=== PATIENT | male | born 1950 | race Caucasian/White ===

== ENCOUNTER 2017-12-13 10:39 | Inpatient (IN) ==
--- NOTE | 2017-12-13 14:58 | IRU History & Physical Report ---
HPI U Date: Date: 12/13/17 Time: 1446 Chief complaint: My legs are weak HPI: Mr. Torres is a pleasant 67-year-old male living at home with his . The patient was interviewed in his room on acute inpatient rehabilitation with his present. Referring physician and primary care physician is Dr. Edd Mendiola. Last spring and summer he was quite independent and enjoyed working outdoors in his yard. He began having progressive weakness in his lower extremities beginning in March or April 2017. By May he could not get up out of his chair and he was transported I believe to via [facility]. He was hospitalized for a couple weeks but had to go home due to family concerns. He states that he was very swollen at that time and it sounds like he was treated predominantly for congestive heart failure. Based on my interview with the patient and his , it is not clear whether his leg weakness was addressed apart from getting rid of the swelling. Ever since that time he has had a gradual decline in his functioning. He has most recently been seen with home health for physical therapy a couple of times weekly. He did not feel as though he made much progress but indicates it was likely due to the fact that he was not being challenged enough at that time. He currently requires a walker or single-point cane to ambulate even short distances in his home. He complains of recurrent edema and he is on hydrochlorothiazide plus Lasix plus metolazone in this regard. He does not know what his ejection fraction is. His pump house engineer is Dr Hill in [place]. He was told that he had diabetes for the first time in May 2017. His initial A1c was around 10%. He states he does not check his blood sugars at home. He was on insulin for a short time in the hospital and then at home but for the past several months has been on glipizide XL 5 mg daily. He does not know what his recent A1c is. In addition he has suffered about 5 or 6 falls in the past month. He tends to fall backwards at those times. At one point he broke a chair and scratched his bottom on a nail. (This area was inspected today upon admission and he just has a couple small scabs which are noninflamed in the right buttock area.) Besides his diabetes mellitus he has numerous other medical conditions. He reports he has had 2 open heart procedures with coronary artery bypass graft procedure is being done. He reports a history of 6 stents having been placed in his heart. His angina is characterized by jaw pain. He still has occasional episodes but not recently he states. According to a record from his primary care physician he reportedly also has history of systolic and diastolic heart failure. We will request records from Dr. Hill regarding his ejection fraction and echocardiogram report. He has chronic back pain and as a result is unable to get out of bed on his own. He has great difficulty with transfers and ambulation. He lives with his in their own home I believe with some grandchildren as well. He has one or 2 steps to get into his home. He does use either a rolling walker or a cane depending on the situation. He has developed quite a bit of urinary incontinence partially due to the fact he cannot get up and go to the bathroom as rapidly as he would like. However he also reports that he is "not able to hold it." He has been told that he possibly has a prostate problem but to my knowledge has not seen urology. He does require assistance with lower extremity dressing and getting in and out of bed. Prior level of functioning was quite independent for all activities. He was able to walk without assistive device. He was active and working in his yard last spring and summer apparently. Current level of functioning is as follows: He requires a single-point cane or a walker to ambulate. He is independent with eating but requires supervision for grooming. He requires minimum assistance for bathing, supervision for upper body dressing and minimal assistance for lower body dressing. He is modified independent for toileting but requires minimus assistance for bed/chair/ wheelchair transfers. Requires supervision for toilet transfers. Unfortunately he requires total assistance for walking with a rolling walker or single-point cane only 20 feet. Requires quite a bit of assistance to get up out of a chair. It takes the patient a prolonged time to get up from the chair and he makes at least 2 attempts to rise prior to actually standing up. He has had multiple falls. The following medical conditions are noted and require active monitoring and/or management: 1. Generalized debilitation with gradual downhill course over the last several months with multiple falls. This is in the setting of multiple back procedures ( cervical spine procedure as well as 2 prior lumbar spine procedures) with significant back pain and difficulty transferring and ambulating. 2. Combined systolic and diastolic heart failure. He takes numerous diuretics and has a problem with recurrent edema he states. 3. Diabetes mellitus, not controlled, on oral agents. He is at risk for further poor control of his diabetes in view of the variable energy requirements associated with therapy. 4. Depression. He is at risk for continued problems with severe depression based on ongoing pain in his back. 5. Coronary artery disease status post bypass, without current angina pectoris The following therapies will be needed: 1. Physical therapy: for transfers and ambulation and stairs. 2. Occupational therapy: for ADL's and transfers. 3. Medical management: for the above conditions. 4. 24 hour Rehabilitation Nursing to monitor and address the following: Close monitoring of blood sugars, blood pressure, cardiac status in view of his heart failure and pain management. 5. Dietitian: In view of his diabetes mellitus. PFSH 1. Coronary artery disease status post bypass procedures and 6 cardiac stents 2. Congestive heart failure, combined systolic and diastolic 3. Urinary urgency and incontinence 4. Gout 5. Diabetes mellitus, not controlled, without complications and not on long- term insulin therapy 6. Obesity 7. Severe debilitation Surgical History: 1. Cervical spine procedure a number of years ago ("cleaned out the spurs"). 2. Bilateral carpal tunnel repair. 3. Coronary artery bypass graft procedure on 2 separate occasions. 4. Multiple cardiac stents. 5. Lumbar spine procedure 2, the first in approximately 2002 and the second in 2011. 5. Sinus surgery Family History: Patient's father of heart disease including congestive heart failure. Mother of diabetes mellitus and heart disease. One brother of heart disease and another sister likely of heart disease according to the patient. - Social History Smoking status: Former smoker (smoked for a brief time from age 21 through his early 20s.) Alcohol intake: former (he states he has drank fairly heavily in the past including a sixpack every evening. This is been a number of years ago.) Alcohol intake frequency: holidays/special occasions only (currently has occasional glass of wine or alcohol.) Last drink: days (ago) (28) Housing: house Household members: spouse, children Current occupational status: retired Current residence: Apartment/Private Home Social history: Patient lives with his in their own home. 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 He formerly has been very active outdoors but has not been able to participate much due to his leg weakness and disability. Review of Systems - Constitutional Constitutional: Present: fatigue, lethargy, weakness, weight gain (has gained gradually over the years but has gained at least 30 pounds during this past 12 months.). Absent: anorexia, chills, fever(s), headache(s), malaise, night sweats, weight loss - EENMT Eyes: Absent: blurry vision, change in vision, diplopia Mouth/Throat: Absent: changes in swallowing, painful swallowing, change in taste , bleeding gums, change in voice - Cardiovascular Cardiovascular: Present: dyspnea on exertion, edema. Absent: chest pain, palpitations, syncope, orthopnea, cyanosis, heart murmur Rhythm: Present: regular rhythm Vascular: Absent: intermittent claudication, pedal edema, unilateral swelling - Respiratory Respiratory: Present: dyspnea, dyspnea on exertion. Absent: cough, hemoptysis, wheezing, pain on inspiration, chest congestion, excessive phlegm production - Gastrointestinal Gastrointestinal: Present: constipation. Absent: abdominal pain, change in bowel habits, diarrhea, dyspepsia, dysphagia, early satiety, hematochezia, melena, nausea, vomiting - Genitourinary Genitourinary: Present: urinary frequency, urinary incontinence, urinary urgency - Musculoskeletal Musculoskeletal: Present: abnormal gait (wide based gait), back pain. Absent: arthralgias, joint swelling, limited range of motion, muscle weakness - Integumentary/Breasts Integumentary: Absent: alopecia, erythema, lesions, pruritus, rash, jaundice - Neurological Neurological: Absent: abnormal gait, abnormal movements, abnormal speech, confusion, convulsions, dizziness, focal weakness, frequent falls, headache(s), loss of vision, memory loss, numbness, paresthesias, tremor(s) - Psychiatric Psychiatric: Absent: abnormal sleep pattern, anxiety, depression - Endocrine Endocrine: Absent: cold intolerance, flushing, heat intolerance, palpitations - Hematologic/Lymphatic Hematologic/Lymphatic: Absent: easy bleeding, easy bruising, lymphadenopathy - Allergic/Immunologic Allergic/Immunologic: Absent: urticaria Medications Home Medications Medication Instructions Recorded Confirmed Type Allopurinol [Zyloprim] 100 mg PO DAILY 12/13/17 12/13/17 History Furosemide [Lasix] 1 tab PO DAILY 12/13/17 12/13/17 History Metolazone [Zaroxolyn] 5 mg PO DAILY 12/13/17 12/13/17 History PARoxetine HCl [Paroxetine HCl] 40 mg PO DAILY 12/13/17 12/13/17 History Tramadol HCl [Ultram] 50 mg PO Q6HR PRN 12/13/17 12/13/17 History glipiZIDE [Glipizide ER] 5 mg PO DAILY 12/13/17 12/13/17 History hydroCHLOROthiazide 25 mg PO DAILY 12/13/17 12/13/17 History [Hydrochlorothiazide] Exam Vital Signs: Temperature 98.1 F 12/13/17 14:01 Pulse Rate 89 12/13/17 14:01 Respiratory Rate 22 12/13/17 14:01 Blood Pressure 124/85 12/13/17 14:01 Pulse Oximetry 98 12/13/17 14:01 - Constitutional Present: moderate distress (quite weak and finds it difficult to stand from sitting position without assistance.), well nourished, well developed, morbidly obese, cooperative - Routine HEENT Exam Head: Present: normocephalic, atraumatic. Absent: cushingoid faces, abrasion, laceration, hematoma Eye: Present: EOMI, PERRL. Absent: conjunctival icterus, scleral injection, periorbital swelling, nystagmus ENT: Present: mucous membranes moist, oropharynx clear, dentition normal - Routine Neck Exam Present: supple, full ROM, trachea midline. Absent: lymphadenopathy, thyromegaly, tenderness, swelling - Routine Chest/Breast/Axilla Exam Chest wall: Absent: tenderness, mass Axillae: Absent: lymphadenopathy, mass - Routine Respiratory Exam Present: CTA bilaterally. Absent: accessory muscle use, decreased breath sounds , prolonged expiratory phase, rales, respiratory distress, rhonchi, stridor, wheezes, crackles, distant breath sounds - Routine Cardiovascular Exam Present: RRR, S1, S2, no murmur. Absent: gallop, S3, S4, click, irregular rhythm - Routine Abdominal Exam Present: soft, normoactive bowel sounds, non distended, non tender. Absent: rebound, guarding, firm, rigid, organomegaly, mass, hernia, wound - Routine Extremities Exam Present: edema (trace to 1+ edema left lower extremity), non tender, pulses intact, normal capillary refill. Absent: cyanosis, clubbing - Routine Back/Spine/Pelvis Exam Back/Spine: Present: full ROM. Absent: scoliosis, kyphosis - Routine Skin Exam Present: intact, dry, warm, wounds (2 small scabbed wounds right buttock noninflamed). Absent: cyanosis, erythema, pallor, mottling, petechiae, urticaria, lesions, jaundice - Routine Neurological Exam Present: alert, oriented X3, CN II-XII intact, motor deficit (unable to dorsiflex right foot. Strength otherwise somewhat reduced with abduction and abduction at the hips bilaterally.), moving all extremities, normal speech - Routine Psychiatric Exam Present: normal affect, normal thought process, cooperative, good insight, good judgment. Absent: depressed, anxious Sepsis Assessment - Evaluation Severe Sepsis: none seen IRU A/P (1) Debility Current visit: Yes Status: Chronic Patient has experienced progressive debility since last summer, prior to which time he was quite active. He has lower extremity weakness and multiple functional deficits. Question spinal stenosis versus simply generalized debility second to obesity and deconditioning. (2) DM type 2 (diabetes mellitus, type 2) Qualifiers: Diabetes mellitus grader tender insulin use: without grader tender use Diabetes mellitus complication status: without complication Qualified Code(s): E11.9 - Type 2 diabetes mellitus without complications Current visit: Yes Status: Chronic He was diagnosed with diabetes mellitus in May 2017. He reports his A1c as 10 % previously. He does not check his blood sugars at home. He is on oral agents only. (3) Systolic and diastolic CHF, chronic Current visit: Yes Status: Chronic He has recurrent edema. He has significant shortness of breath with activity. This diagnosis is listed on his primary care office record. (4) Morbid obesity Current visit: Yes Status: Chronic (5) Lumbar spine pain Current visit: Yes Status: Chronic (6) Arteriosclerotic heart disease (ASHD) Current visit: Yes Status: Chronic He reportedly has had 2 separate coronary artery bypass graft procedures as well as 6 stents being placed. Has occasional jaw pain. He is at risk for worsening angina due to his need for additional therapy to improve his functional status. DVT Prophylaxis: SCD's, Lovenox Resuscitation Status: Full Code - Course Hospital Course: Rodriguez Rivero MD: - Interventions to Obtain Goals PT Treatment Plan: Balance/Proprioception, Functional Activities, Gait Training , Patient/Family Education, Therapeutic Exercise OT Treatment Plan: ADL (Basic Care), Balance Training, IADL, Pt./Family Education, Ther. Exercise for ADL Goals Progress/Modifications: This patient has developed multiple functional deficits over the last several months. He has suffered frequent falling episodes. He tends to fall backwards. In addition he has multiple medical problems including coronary artery disease, congestive heart failure with recurrent edema, diabetes mellitus type 2 and possibly sleep apnea based on his symptoms. He requires a multidisciplinary approach with PT, OT, 24 hour rehabilitation nursing and medical supervision.
--- NOTE | 2017-12-13 15:12 | IRU 24Hr Post Admit Eval ---
24 Hr Post Admission Physical - Relevant Changes Relevant Changes: No Reviewed: I have reviewed the patient's information and concur with the finding and results of the pre-admission screen. Certification: I certify the patient for rehabilitation. - Patient Condition (1) Debility Status: Chronic Code(s): R53.81 - Other malaise Classification: Present on IRF Admission, IRF Tx That Should Address Diagnosis, Diagnosis Requiring Medical Follow Up (2) DM type 2 (diabetes mellitus, type 2) Status: Chronic Qualifiers: Diabetes mellitus residential insulin use: without manager long term care use Diabetes mellitus complication status: without complication Qualified Code(s): E11.9 - Type 2 diabetes mellitus without complications Code(s): E11.9 - Type 2 diabetes mellitus without complications Classification: Present on IRF Admission, IRF Tx That Should Address Diagnosis, Diagnosis Requiring Medical Follow Up (3) Systolic and diastolic CHF, chronic Status: Chronic Code(s): I50.42 - Chronic combined systolic (congestive) and diastolic (congestive) heart failure Classification: Present on IRF Admission, IRF Tx That Should Address Diagnosis, Diagnosis Requiring Medical Follow Up (4) Morbid obesity Status: Chronic Code(s): E66.01 - Morbid (severe) obesity due to excess calories Classification: Present on IRF Admission, Diagnosis Requiring Medical Follow Up (5) Lumbar spine pain Status: Chronic Code(s): M54.5 - Low back pain Classification: Present on IRF Admission, IRF Tx That Should Address Diagnosis, Diagnosis Requiring Medical Follow Up (6) Arteriosclerotic heart disease (ASHD) Status: Chronic Code(s): I25.10 - Atherosclerotic heart disease of saxman coronary artery without angina pectoris Classification: Present on IRF Admission, Diagnosis Requiring Medical Follow Up - Prior Functional Status Lives With: Spouse, With Family Residence Type: Apartment/Private Home Assitive Devices: Four Wheeled Walker, Straight Cane Prior Functional Status: Indep. at home or school - Current Functional Status Current Level of Function: Current level of functioning is as follows: He requires a single-point cane or a walker to ambulate. He is independent with eating but requires supervision for grooming. He requires minimum assistance for bathing, supervision for upper body dressing and minimal assistance for lower body dressing. He is modified independent for toileting but requires minimus assistance for bed/chair/ wheelchair transfers. Requires supervision for toilet transfers. Unfortunately he requires total assistance for walking with a rolling walker or single-point cane only 20 feet. Requires quite a bit of assistance to get up out of a chair. It takes the patient a prolonged time to get up from the chair and he makes at least 2 attempts to rise prior to actually standing up. He has had multiple falls. Failed Alternative Therapy: Yes (outpatient (home health) therapy was attempted but not successful.) Patient Requirements: The patient requires oversight by rehabilitation physician to manage their rehabilitation treatment plan and multidisciplinary approach to care that can only be provided in an IRF and requires a multidisciplinary approach to care, provided by professional PTs, OTs, STs, dieticians, RTs, rehabilitation nurses and is not available in lesser levels of care. Limitations Req: Mobility Impairment, ADL Impairment, Respiratory Impairment Physical Therapy Minutes: 90 Occupational Therapy Minutes: 90 Therapy: The patient is to receive therapy at least 5 days a week. - Complications/Comorbidities Impact on Functional Outcomes: His deconditioning, obesity and congestive heart failure may negatively impact his functional outcome. Barriers to Discharge: Weakness, Balance, Endurance, Medical Limitation - Plan to Avoid Complications Plan to Avoid Complications: The patient cannot receive this care in a lesser intensive setting such as Alf or Outpatient Therapy due to the patient requiring the following : This patient requires a multidisciplinary approach with PT and OT as well as dietitian management of his diabetes. He requires 24 hour rehabilitation nursing to monitor his cardiac status, blood sugars and to reduce his fall risk. He requires medical supervision.
--- NOTE | 2017-12-13 15:26 | Progress Note ---
Progress Note: Patient and reports that he cannot sleep flat in bed at night and that he gasps for air at night. We will check an overnight oximetry in this regard.
[2017-12-13] MEDS ORDERED: NITROGLYCERIN 0.4 MG SUBLINGUAL TABLET SL PRN (16:29)
[2017-12-13] MEDS ORDERED: ENOXAPARIN - PHARMACY CONSULT MC ONE (16:30)
--- NOTE | 2017-12-13 16:44 | Progress Note ---
Progress Note: Records from Dr. Hill's office have been obtained and reviewed. Echocardiogram April 2017 indicated normal ejection fraction is 60%. He has been diagnosed with diastolic heart failure. In addition, he is supposed to be on aspirin 81 mg daily plus Lipitor 10 mg daily. Patient was not aware of that. Reference is made to treadmill sometime in the latter portion of 2016 which was negative for ischemia and revealed normal left ventricular ejection fraction.
--- NOTE | 2017-12-13 16:48 | Pharmacy Consult ---
Pharmacy Consult-Lovenox - Consult Information ENOXAPARIN CONSULT: Dx: DVT Prophylaxis Start Enoxaparin 40 mg SQ daily today. Thanks for Enoxaparin Consult, Giuseppe Cox< Pharmacist
--- NOTE | 2017-12-13 16:54 | Consult Note ---
Consult Information - Data of Consult Consult date: 12/13/17 Requesting Physician: Rodriguez Rivero MD Primary Care Provider: Edd Mendiola MD Family Provider: Edd Mendiola MD - Consult Narrative Reason for consult: Generalized debility, weakness History of present illness: Nolan Torres is a pleasant 67-year-old male who currently lives at home with his and has recently established care with Dr. Edd Mendiola. He reports that over the past year, he has become progressively more weak and debilitated which is affecting his acts of daily living. During the spring/summer of 2016, he reports that he was quite independent and enjoyed working outdoors in his yard. Around March/April 2017, he began having progressive weakness in his lower extremities. By May, he reports he could not get up out of his chair independently. He was hospitalized in [place], presumably at [facility], for a couple weeks due to his significant edema and weakness but discharged home early due to family concerns. Based on his report, it sounds like he was treated predominantly for congestive heart failure, but it is unclear if his progressive weakness was also addressed. Since that time, he has had a gradual decline in his functional ability. He has most recently been seen with home health for physical therapy a couple of times weekly, but did not feel as though he made much progress. He admits that he did not feel challenged enough with the home physical therapy. He currently requires a walker or single-point cane to ambulate even short distances in his home and admits to 5-6 falls in the past month without significant injury. He complains of recurrent edema despite being on hydrochlorothiazide plus Lasix plus metolazone. He follows with Dr. Hill in [place], who has been contacted and prior medical records have been requested. Due to his generalized weakness and debility, he was directly admitted to IRU for strengthening and improvement in functional abilities. In addition to his generalized debility, he has a significant history of diastolic heart failure, uncontrolled diabetes which was recently diagnosed in 2017, CAD with prior CABG x 2 and stent placement x 6, hypertension, hyperlipidemia, depression, urinary incontinence and chronic back pain. The hospitalist service was consulted for medical management. His prior records available at the time of admission were extensively reviewed. Labs from revealed an elevated A1c at 9.8% and otherwise unremarkable. He is currently on Glipizide Xl 5mg daily and admits that he does not check his blood sugars regularly. With regard to his urinary incontinence, he believes it is partially due to the fact that he cannot get up and go to the bathroom as rapidly as he needs but also complains of urgency and "not being able to hold it ". He has been told previously that he might possibly have prostate issues but is not currently undergoing treatment. Past Medical History Patient Stated Medical History Congestive heart failure, diastolic (Echo 04/2017 = EF 60%). Peripheral edema. Hypertension. Hyperlipidemia. CAD. Diabetes Mellitus, Type II - uncontrolled (A1c 9.8% on 11/17/17). Gait instability. Generalized weakness. Urinary incontinence. Constipation. Depression. Chronic right foot drop secondary to prior lumbar surgery. Morbid obesity, BMI >40. Gout. Surgical History: 1. Cervical spine procedure a number of years ago ("cleaned out the spurs"). 2. Bilateral carpal tunnel repair. 3. Coronary artery bypass graft procedure on 2 separate occasions - 2009. 4. Multiple cardiac stents. 5. Lumbar spine procedure 2, the first in approximately 2002 and the second in 2011. 5. Sinus surgery. Family History Updates: Patient's father of heart disease including congestive heart failure. Mother of diabetes mellitus and heart disease. One brother of heart disease and another sister likely of heart disease according to the patient. - Social History Smoking status: Former smoker (smoked for a brief time from age 21 through his early 20s.) Substance use type: does not use Alcohol intake frequency: former alcohol drinker (he states he has drank fairly heavily in the past including a sixpack every evening. This is been a number of years ago.) Housing: house Household members: spouse, family Current occupational status: retired Does patient use chewing tobacco?: No Current residence: Apartment/Private Home Social history: PCP - Dr. Edd Mendiola. Cardio - Dr. Hill. Review of Systems All systems PM: 10-point ROS was reviewed, no additional remarkable complaints except - Constitutional Constitutional: Present: weakness. Absent: chills, fatigue, fever(s) - EENMT Eyes: Absent: change in vision, diplopia, photophobia Ears: Absent: ear pain Balance: Absent: vertigo, falling to one side Nose: Absent: nosebleeds Mouth/Throat: Absent: sore throat, changes in swallowing, dry mouth - Cardiovascular Cardiovascular: Present: dyspnea on exertion, orthopnea, edema. Absent: chest pain, palpitations, syncope Rhythm: Present: regular rhythm Vascular: Present: pedal edema. Absent: pallor of an extermity, unilateral swelling - Respiratory Respiratory: Present: dyspnea on exertion. Absent: cough, dyspnea, wheezing - Gastrointestinal Gastrointestinal: Present: constipation. Absent: abdominal pain, diarrhea, hematochezia, melena, nausea, vomiting - Genitourinary Genitourinary: Present: urinary incontinence, urinary urgency. Absent: dysuria , flank pain, hematuria - Musculoskeletal Musculoskeletal: Present: back pain, muscle weakness. Absent: deformity - Integumentary/Breasts Integumentary: Absent: rash - Neurological Neurological: Present: weakness. Absent: confusion, convulsions, dizziness - Psychiatric Psychiatric: Present: anxiety, depression - Endocrine Endocrine: Absent: flushing, palpitations - Hematologic/Lymphatic Hematologic/Lymphatic: Absent: easy bruising - Allergic/Immunologic Allergic/Immunologic: Absent: seasonal rhinorrhea Medications Home Medications Medication Instructions Recorded Confirmed Type Allopurinol [Zyloprim] 100 mg PO DAILY 12/13/17 12/13/17 History Furosemide [Lasix] 1 tab PO DAILY 12/13/17 12/13/17 History Metolazone [Zaroxolyn] 5 mg PO DAILY 12/13/17 12/13/17 History PARoxetine HCl [Paroxetine HCl] 40 mg PO DAILY 12/13/17 12/13/17 History Tramadol HCl [Ultram] 50 mg PO Q6HR PRN 12/13/17 12/13/17 History glipiZIDE [Glipizide ER] 5 mg PO DAILY 12/13/17 12/13/17 History hydroCHLOROthiazide 25 mg PO DAILY 12/13/17 12/13/17 History [Hydrochlorothiazide] Allergies Allergy/AdvReac Type Severity Reaction Status Date / Time adhesive tape Allergy Verified 12/13/17 15:57 Penicillins Allergy Verified 12/13/17 15:57 Exam Vital Signs: Temperature 98.1 F 12/13/17 14:01 Pulse Rate 89 12/13/17 14:01 Respiratory Rate 22 12/13/17 14:01 Blood Pressure 124/85 12/13/17 14:01 Pulse Oximetry 98 12/13/17 14:01 Comments: Patient is seen with his present following his arrival on IRU. - Constitutional Present: no acute distress, well nourished, well developed, morbidly obese, cooperative - Routine HEENT Exam Head: Present: normocephalic, atraumatic Eye: Present: PERRL. Absent: conjunctival icterus ENT: Present: mucous membranes moist, oropharynx clear - Routine Neck Exam Present: supple, full ROM, trachea midline - Routine Chest/Breast/Axilla Exam Chest wall: Absent: pacemaker - Routine Respiratory Exam Present: CTA bilaterally. Absent: respiratory distress, rhonchi, stridor, wheezes - Routine Cardiovascular Exam Present: RRR, S1, S2 - Routine Abdominal Exam Present: soft, normoactive bowel sounds, non distended, non tender Comments: obese. - Routine Extremities Exam Present: edema (2+), pulses intact - Routine Back/Spine/Pelvis Exam Back/Spine: Present: full ROM - Routine Skin Exam Present: dry, warm. Absent: jaundice Comments: afebrile. - Routine Neurological Exam Present: alert, oriented X3, moving all extremities, hearing grossly intact, normal speech - Routine Psychiatric Exam Present: cooperative Results - Labs CBC & Chem 7: 12/13/17 16:08 Labs: Labs 11/17/17 (obtained as outpatient by PCP). WBC 10.7 H Hgb 14.1 Plt 279 Na 139 K 3.9 BUN 15 SCr 1.1 GFR 67 Glu 119 AST 46 H ALT 53 H Alk Ph 124 H A1c 9.8% H BNP 62 - Echocardiogram History of Echocardiogram: 04/2017 - normal systolic function with EF 60%; diastolic dysfunction. Assessment and Plan (1) Debility Current visit: Yes Status: Chronic (2) DM type 2 (diabetes mellitus, type 2) Problem details: A1c 9.8% - 11/17/17. Current visit: Yes Status: Chronic (3) Morbid obesity Problem details: BMI >40%. Current visit: Yes Status: Chronic (4) Arteriosclerotic heart disease (ASHD) Current visit: Yes Status: Chronic Assessment and Plan: Assessment: Gait instability. Generalized weakness. Congestive heart failure, diastolic (Echo 04/2017 = EF 60%). Chronic kidney disease, stage III. Peripheral edema. Hypertension. Hyperlipidemia. CAD. Diabetes Mellitus, Type II - uncontrolled (A1c 9.8% on 11/17/17). Urinary incontinence. Constipation. Depression. Chronic right foot drop secondary to prior lumbar surgery. Morbid obesity, BMI >40. Gout. Plan - 12/13/17: Agree with admission to IRU for continued strengthening and improvement in functional abilities. Encourage participation in therapies and provide safe and supportive environment. Will obtain labs for admission including CBC, CMP, UA, TSH, B12 and Prealbumin to assess for possible causes of debility. Given heart failure and dyspnea with exertion, will obtain CXR now. Monitor BGMs closely. Sliding scale insulin available. Continue home Glipidize Xl 5mg daily. May consider transitioning to metformin based on renal function and BGMs. Will try and obtain additional records from Dr. Hill with regard to recommended home medications. Given patient's diabetes, will discontinue HCTZ and continue home Lasix 40mg daily as well as Metolazone 5mg on MWF. Monitor daily weight. Blood pressure elevated on admission. Will initiate lisinopril 5mg daily for additional control. Incontinence most likely multifactorial given morbid obesity and suspected BPH. Will initiate Flomax daily and monitor closely for improvement. Continue home Paxil for depression/anxiety. Bowel motivation for constipation. Protonix for GI protection. SCDs and Lovenox for DVT prophylaxis. Upon discharge, patient's care will be returned to his PCP. DVT Prophylaxis: SCD's, Lovenox GI Prophylaxis: Protonix Resuscitation Status: Full Code - Time spent with patient Time with patient PN: 70 minutes - Physician Narrative Physician: Winnie Barlow MD Narrative: Date: 12/13/17 Time: 1800 I have independently evaluated and examined this patient. I reviewed the chart, the patient's history, and the EDITORIAL SPECIALIST/PA's documented findings as above. We discussed and formulated the assessment and plan as above with additions as below: Mr. Torres was seen with family members at bedside. He is admitted with generalized debility which has been progressive for years. He's previously undergone several lumbar and 1 cervical spine surgery and has chronic right foot drop. He has known coronary artery disease and diastolic heart failure. He denies sensory loss in his legs or chest pain but has significant edema and discoloration in the legs when they are dependent. Medical care has been disrupted by loss of his past managing physician and he recently established care with Dr. Mendiola who referred him to rehabilitation due to multiple uncontrolled problems. His reports the patient has difficulty coordinating follow-up processes at times, for example stand up to take a step but seems to forget how to initiate the step, raising question of whether he may have had a stroke. NAD, alert Respirations nonlabored, good airflow, breath sounds clear Regular rhythm, S1-S2, +2 edema bilateral lower extremities with dependent rubor present The patient cannot dorsiflex right foot at all Discharge records from [facility] May 2017 reviewed, at that time the patient was discharged on: Metformin 500 mg twice a day NovoLog 8 units 3 times a day, Levemir 18 units daily at bedtime Plavix 75 mg daily Aspirin 81 mg daily Flomax 0.8 mg daily at bedtime Lasix 40 mg twice a day Paxil 40 mg daily Tramadol, Tylenol, Tums, Colace, nitroglycerin, MiraLAX Lisinopril/hydrochlorothiazide was discontinued during the hospitalization and he was treated for acute gout with colchicine while hospitalized by colchicine was discontinued prior to discharge. The patient was briefly in their rehabilitation unit but discharged early due to in the family. Discharge records and medication list are placed in the patient's paper chart on the rehabilitation unit here. Will clarify with patient/family one metformin was discontinued-if simply because prescription ran out will resume it. Suspect Flomax needs to be resumed as well due to complaints of urinary dribbling and inability to get to the bathroom in time. Discussed with Dr. Rivero. Hospital Course Summary Disclaimer: The visit summary below is not to be considered part of the above Progress Note. Hospital Course: Plan - 12/13/17: Agree with admission to IRU for continued strengthening and improvement in functional abilities. Encourage participation in therapies and provide safe and supportive environment. Will obtain labs for admission including CBC, CMP, UA, TSH, B12 and Prealbumin to assess for possible causes of debility. Given heart failure and dyspnea with exertion, will obtain CXR now. Monitor BGMs closely. Sliding scale insulin available. Continue home Glipidize Xl 5mg daily. May consider transitioning to metformin based on renal function and BGMs. Will try and obtain additional records from Dr. Hill with regard to recommended home medications. Given patient's diabetes, will discontinue HCTZ and continue home Lasix 40mg daily as well as Metolazone 5mg on MWF. Monitor daily weight. Blood pressure elevated on admission. Will initiate lisinopril 5mg daily for additional control. Incontinence most likely multifactorial given morbid obesity and suspected BPH. Will initiate Flomax daily and monitor closely for improvement. Continue home Paxil for depression/anxiety. Bowel motivation for constipation. Protonix for GI protection. SCDs and Lovenox for DVT prophylaxis. Upon discharge, patient's care will be returned to his PCP.
[2017-12-13 17:01] VITALS: BMI 41.3
[2017-12-13] MEDS: ATORVASTATIN 20 MG TABLET PO SCH (21:03)
[2017-12-13] MEDS: TAMSULOSIN 0.4 MG CAPSULE PO SCH (21:04)
[2017-12-13] MEDS: INSULIN ASPART 100unit/ml INJECTION SQ PRN (21:11)
[2017-12-14] MEDS: PANTOPRAZOLE 20 MG TABLET PO SCH ×2 (05:03→08:15)
[2017-12-14] MEDS: INSULIN ASPART 100unit/ml INJECTION SQ PRN ×4 (05:09→21:33)
--- NOTE | 2017-12-14 08:43 | XRay Report ---
INDICATION: CHF PROCEDURE: CHEST 2-VIEWS UPRIGHT (PA & LAT) Encounter: Initial COMPARISON: None FINDINGS: The lungs are clear without evidence of focal abnormal airspace opacity. There is no pleural effusion or pneumothorax. Poststernotomy changes are present. The cardiac silhouette is mildly enlarged. The mediastinal contours and pulmonary vascularity are within normal limits. There is no significant skeletal abnormality. IMPRESSION: No pneumonia or congestive failure. Mild enlargement of the cardiac silhouette could be due to cardiomegaly or pericardial effusion. .
[2017-12-14] MEDS: FUROSEMIDE 40 MG TABLET PO SCH (08:57)
[2017-12-14] MEDS: PAROXETINE 40 MG TABLET PO SCH (08:58)
[2017-12-14] MEDS: LISINOPRIL 5 MG TABLET PO SCH (08:58)
[2017-12-14] MEDS: METFORMIN 500 MG TABLET PO SCH ×2 (08:58→17:44)
[2017-12-14] MEDS: ALLOPURINOL 100 MG TABLET PO SCH (08:58)
[2017-12-14] MEDS: TRAMADOL 50 MG TABLET PO SCH (08:58)
[2017-12-14] MEDS: ASPIRIN 81 MG CHEWABLE TABLET PO SCH (08:59)
[2017-12-14] MEDS: ENOXAPARIN 40 MG/0.4 ML INJECTION SQ SCH (08:59)
[2017-12-14] MEDS: ACETAMINOPHEN 325 MG TABLET PO PRN (12:13)
[2017-12-14] MEDS ORDERED: SENNA + DOCUSATE TABLET PO PRN (14:49)
[2017-12-14] MEDS: POLYETHYL GLYCOL 3350 17gm PACKET PO SCH (14:54)
[2017-12-14] MEDS: ATORVASTATIN 20 MG TABLET PO SCH (21:31)
[2017-12-14] MEDS: TAMSULOSIN 0.4 MG CAPSULE PO SCH (21:32)
[2017-12-15] MEDS: PANTOPRAZOLE 20 MG TABLET PO SCH (05:33)
[2017-12-15] MEDS: INSULIN ASPART 100unit/ml INJECTION SQ PRN ×3 (05:40→14:43)
[2017-12-15] MEDS: PAROXETINE 40 MG TABLET PO SCH (08:41)
[2017-12-15] MEDS: TRAMADOL 50 MG TABLET PO SCH (08:42)
[2017-12-15] MEDS: LISINOPRIL 5 MG TABLET PO SCH (08:42)
[2017-12-15] MEDS: ASPIRIN 81 MG CHEWABLE TABLET PO SCH (08:42)
[2017-12-15] MEDS: METFORMIN 500 MG TABLET PO SCH ×2 (08:42→17:15)
[2017-12-15] MEDS: POLYETHYL GLYCOL 3350 17gm PACKET PO SCH (08:43)
[2017-12-15] MEDS: ENOXAPARIN 40 MG/0.4 ML INJECTION SQ SCH (08:43)
[2017-12-15] MEDS: FUROSEMIDE 40 MG TABLET PO SCH (08:43)
[2017-12-15] MEDS: ALLOPURINOL 100 MG TABLET PO SCH (08:43)
--- NOTE | 2017-12-15 12:46 | IRU Plan of Care ---
[facility] Overall Plan of Care - Date Date: 12/15/17 - Patient Impairments (1) Debility Code(s): R53.81 - Other malaise Status: Chronic Classification: Present on IRF Admission, IRF Tx That Should Address Diagnosis, Diagnosis Requiring Medical Follow Up (2) DM type 2 (diabetes mellitus, type 2) Qualifiers: Diabetes mellitus fpc insulin use: without manager long term care use Diabetes mellitus complication status: without complication Qualified Code(s): E11.9 - Type 2 diabetes mellitus without complications Code(s): E11.9 - Type 2 diabetes mellitus without complications Status: Chronic Classification: Present on IRF Admission, IRF Tx That Should Address Diagnosis, Diagnosis Requiring Medical Follow Up (3) Morbid obesity Code(s): E66.01 - Morbid (severe) obesity due to excess calories Status: Chronic Classification: Present on IRF Admission, Diagnosis Requiring Medical Follow Up (4) Arteriosclerotic heart disease (ASHD) Code(s): I25.10 - Atherosclerotic heart disease of [place] coronary artery without angina pectoris Status: Chronic Classification: Present on IRF Admission, Diagnosis Requiring Medical Follow Up (5) (HFpEF) heart failure with preserved ejection fraction Code(s): I50.30 - Unspecified diastolic (congestive) heart failure Status: Chronic Classification: Present on IRF Admission, IRF Tx That Should Address Diagnosis, Diagnosis Requiring Medical Follow Up - Relevant Changes Relevant Changes: No Reviewed: I have reviewed the patient's information and concur with the finding and results of the pre-admission screen. Certification: I certify the patient for rehabilitation. - Medical Prognosis Medical Prognosis: Good Vital Signs: Last Vital Signs Temp 98.0 F 12/15/17 08:00 Pulse 100 12/15/17 08:00 Resp 16 12/15/17 08:00 BP 116/65 12/15/17 08:00 Pulse Ox 92 12/15/17 08:00 - Anticipated Interventions Anticipated Interventions: The patient requires inpatient IRF care for PT and OT for residuals remaining from debility and diastolic heart failure and lumbar spinal stenosis resulting in muscular weakness and strength deficits. Strength Deficits: Right Lower Extremity, Left Lower Extremity - Current Functional Status Failed Alternative Therapy: Yes (patient failed outpatient management with home health physical therapy.) Patient Requires: The patient requires oversight by rehabilitation physician to manage their rehabilitation treatment plan and multidisciplinary approach to care that can only be provided in an IRF and requires a multidisciplinary approach to care, provided by professional PTs, OTs, STs, rehabilitation nurses, and may require STs, dieticians, and RTS. This is not available in lesser levels of care. Physical Therapy Minutes: 90 Occupational Therapy Minutes: 90 Therapy: The patient is to receive therapy at least 5 days a week. - Anticipated LOS/Outcomes Anticipated Functional Outcome: It is anticipated the patient will be able to return to his home at modified independent level of functioning for ambulation, transfers and ADLs. It is anticipated his diabetes will be in improved control as well as his heart failure with preserved ejection fraction and fluid management. Anticipated Length of Stay (days): 14 Anticipated DC Destination: Home, Self Assisted Safety Plan: The patient will be provided with the development of a Home Safety Plan for return to a home or home-like environment and and to ensure safety post discharge. - Plan to Avoid Complications Barriers to Attaining Goals: Weakness, Balance, Endurance, Pain Control, Medical Limitation Plan to Avoid Complications: The patient cannot receive this care in a lesser intensive setting such as [facility] or Outpatient Therapy due to the patient requiring the following : This patient requires close monitoring of his fluid balance, heart failure with preserved ejection fraction and his diabetes mellitus. He requires close monitoring to reduce fall risk. In addition he requires a multidisciplinary approach with PT, OT and medical supervision in view of his multiple medical problems .
--- NOTE | 2017-12-15 13:48 | IRU Progress Note ---
- Subjective/Serverity of Illness Date: 12/15/17 Mr. Torres is very cooperative with therapy and making progress. He is able to ambulate with standby assist based on actual assistance required (maximum assist based on distance of 64 feet). Transfers are typically with contact- guard assistance. He does have a very wide based gait. To note a balance evaluation was performed with a score of 13 consistent with a high fall risk. The patient states that he continues to have dyspnea with activity. He denies any cough. He denies any jaw pain or chest pain (jaw pain was his previous angina). He would like to have an AFO for his right foot drop. Prescription will be provided. His weight is down 1 kg. I have reviewed the outside records including echocardiogram obtained from his hr assistant. This demonstrates normal contractility. He has been diagnosed with diastolic heart failure by his hr assistant. He remains on multiple diuretics. For some reason he was not on a statin although cardiology at indicated previously that he should be on Lipitor. This was begun at this time. Update on medical issues we're actively monitoring or managing as follows: 1. Generalized debilitation: Likely this is multifactorial but related to multiple back procedures, probable underlying spinal stenosis, deconditioning and his medical status. He is cooperative with therapy and states that he is making progress. 2. HFpEF: Patient has diastolic heart failure. He is on multiple diuretics. His weight is down 1 pound. He states that he still has dyspnea with activity and reduced exercise tolerance. 3. Diabetes mellitus, not controlled, on oral agents. He is on a sliding insulin scale. In addition, metformin has been started. He has several questions about his diabetes. We have discussed with the dietitian as well as with the patient. 4. Depression. He is at risk for continued problems with severe depression based on ongoing pain in his back. 5. Coronary artery disease status post bypass: He denies current jaw pain or chest pain. He is tolerating therapy okay with regard to angina although has easy fatigability and dyspnea with activity. I was also concerned about nocturnal hypoxemia/obstructive sleep apnea. This is based on his 's comments regarding gasping for air and stopping breathing at night. Overnight oximetry revealed a transiently low saturation of 64%. However he was less than 89% only for 9 minutes total. We will observe for the time being. Exam Vital Signs: Temperature 98.0 F 12/15/17 08:00 Pulse Rate 100 12/15/17 08:00 Respiratory Rate 16 12/15/17 08:00 Blood Pressure 116/65 12/15/17 08:00 Pulse Oximetry 92 12/15/17 08:00 Height/Weight/BMI: Height 1.75 m Weight 126.8 kg Body Mass Index 41.3 - Constitutional Present: mild distress (dyspnea with activity.), well nourished, well developed , morbidly obese, cooperative - Routine HEENT Exam Eye: Present: EOMI ENT: Present: mucous membranes dry, oropharynx clear - Routine Neck Exam Present: supple - Routine Respiratory Exam Present: dyspnea, decreased breath sounds, CTA bilaterally. Absent: wheezes, crackles - Routine Cardiovascular Exam Present: RRR, S1, S2. Absent: murmur - Routine Abdominal Exam Present: soft, normoactive bowel sounds, non distended. Absent: tenderness - Routine Extremities Exam Present: edema (trace edema right worse than left.), pulses intact - Routine Skin Exam Present: dry, warm - Routine Neurological Exam Present: alert, oriented X3, CN II-XII intact Right foot drop noted. - Routine Psychiatric Exam Present: normal affect, normal thought process, cooperative, good insight, good judgment Results IRU - Labs Labs: I reviewed his chart due to including lab work etc. IRU A/P (1) Debility Current visit: Yes Status: Chronic He has debility from multiple reasons. He is deconditioned, has morbid obesity, heart failure with preserved ejection fraction as well as previous back and neck procedures. He may well have underlying spinal stenosis. 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 Current visit: Yes Status: Chronic His blood sugars have been running too high. Metformin has been added and he is also on a sliding insulin scale. He will see a dietitian as he has already. (3) Morbid obesity Problem details: BMI >40%. Current visit: Yes Status: Chronic (4) Arteriosclerotic heart disease (ASHD) Current visit: Yes Status: Chronic (5) (HFpEF) heart failure with preserved ejection fraction Current visit: Yes Status: Chronic His lungs are clear. His weight is down 1 kg. Has minimal edema in the right lower extremity. (6) Foot drop, right Current visit: Yes Status: Chronic It is likely his right foot drop is related to previous back problems including what sounds like spinal stenosis. He has had multiple procedures on the back and states that this occurred after one of his procedures many years ago. DVT Prophylaxis: SCD's, Lovenox Resuscitation Status: Full Code - Course Hospital Course: Rodriguez Rivero MD: 12/15/17 14:01 Patient is cooperative and progressing with therapy. Blood sugars are variable and too high. Metformin started. Remains on diuretics. Tolerating therapy reasonably well although with easy fatigability. - Interventions to Obtain Goals PT Treatment Plan: Balance/Proprioception, Functional Activities, Gait Training , Patient/Family Education, Therapeutic Exercise OT Treatment Plan: ADL (Basic Care), Balance Training, Pt./Family Education, Ther. Exercise for ADL Goals Progress/Modifications: He is progressing with therapy. He continues to have dyspnea with activity and easy fatigability. He denies any jaw pain/angina. Has multiple questions about his diabetes which we have attempted to address. He is seeing the dietitian and will likely see the certified patient educator. His lungs are clear. He is noted to have heart failure with preserved ejection fraction. He remains on multiple diuretics. We are working on his diabetes, heart failure as well as his debilitation. Prescription was provided for AFO. Please note that the patient's individual plan of care was developed and documented today, requiring review of therapy notes, medical conditions and anticipated functional recovery. This required additional medical decision making with regard to interaction of the patient's medical issues with the anticipated functional recovery. Please see separate document
[2017-12-15] MEDS: ATORVASTATIN 20 MG TABLET PO SCH (21:51)
[2017-12-15] MEDS: TAMSULOSIN 0.4 MG CAPSULE PO SCH (21:52)
[2017-12-16] MEDS: PANTOPRAZOLE 20 MG TABLET PO SCH ×2 (05:14→11:11)
[2017-12-16] MEDS: INSULIN ASPART 100unit/ml INJECTION SQ PRN ×3 (06:24→20:39)
[2017-12-16] MEDS: POLYETHYL GLYCOL 3350 17gm PACKET PO SCH (08:40)
[2017-12-16] MEDS: LISINOPRIL 5 MG TABLET PO SCH (08:41)
[2017-12-16] MEDS: ENOXAPARIN 40 MG/0.4 ML INJECTION SQ SCH (08:41)
[2017-12-16] MEDS: ALLOPURINOL 100 MG TABLET PO SCH (08:41)
[2017-12-16] MEDS: ASPIRIN 81 MG CHEWABLE TABLET PO SCH (08:41)
[2017-12-16] MEDS: FUROSEMIDE 40 MG TABLET PO SCH (08:41)
[2017-12-16] MEDS: METFORMIN 500 MG TABLET PO SCH (08:41)
[2017-12-16] MEDS: PAROXETINE 40 MG TABLET PO SCH (08:42)
[2017-12-16] MEDS: TRAMADOL 50 MG TABLET PO SCH (08:42)
--- NOTE | 2017-12-16 11:13 | IRU Progress Note ---
- Subjective/Serverity of Illness Date: 12/16/17 Mr. Torres was evaluated in his room on inpatient rehabilitation. He is concerned about his blood sugars. Review of these numbers indicates fasting sugars around 160-170. After eating they go up to around 200 or greater. At home he was on apparently glipizide only (or glyburide). Here we have added on metformin and may need to increase that further. In addition we talked about his dietary intake. I visited with the dietitian yesterday in this regard and with the patient yesterday and today. His weight is down about a kilogram. Next we discussed his symptom of gasping at night etc. I reported to him that his overall oximetry did not confirm the presence of hypoxemia to a significant degree. His diastolic heart failure appears to be adequately controlled at present. He is on multiple diuretics. He does not have edema at present. He does have dyspnea with activity but he states it is fairly chronic at present. He denies any cough or sputum and denies any jaw pain which was his previous manifestation of angina. There was concern expressed on the part of a staff person that there may be cognitive issues. He was assessed by speech therapy today and they felt as though he was doing okay in this regard. From a therapy standpoint he continues to improve. His ambulatory ability and transfers are significantly improved according to the patient. Exam Vital Signs: Temperature 98.1 F 12/16/17 08:00 Pulse Rate 93 12/16/17 08:00 Respiratory Rate 20 12/16/17 08:00 Blood Pressure 115/72 12/16/17 08:00 Pulse Oximetry 93 12/16/17 08:00 Height/Weight/BMI: Height 1.75 m Weight 126.8 kg Body Mass Index 41.3 - Constitutional Present: no acute distress, well nourished, well developed, morbidly obese, cooperative - Routine HEENT Exam Head: Present: normocephalic, atraumatic Eye: Present: EOMI ENT: Present: mucous membranes moist, oropharynx clear - Routine Neck Exam Present: supple - Routine Respiratory Exam Present: decreased breath sounds, CTA bilaterally. Absent: respiratory distress , rhonchi, wheezes, crackles - Routine Cardiovascular Exam Present: RRR, S1, S2. Absent: murmur, S3, S4 - Routine Abdominal Exam Present: soft, normoactive bowel sounds, non distended. Absent: tenderness - Routine Extremities Exam Present: no edema, normal capillary refill - Routine Skin Exam Present: dry, warm - Routine Neurological Exam Present: alert, oriented X3, CN II-XII intact - Routine Psychiatric Exam Present: normal affect, cooperative, anxious Results IRU - Labs Labs: I reviewed the patient's laboratory values and other chart data. Have discussed with therapy as well. IRU A/P (1) Debility Current visit: Yes Status: Chronic His ability is improving. His ambulatory ability as well as transfers are improving. Continues to be quite deconditioned and his morbid obesity is a barrier to his functional improvement. (2) DM type 2 (diabetes mellitus, type 2) Qualifiers: Diabetes mellitus long-term insulin use: without watermaster use Diabetes mellitus complication status: without complication Qualified Code(s): E11.9 - Type 2 diabetes mellitus without complications Problem details: A1c 9.8% - 11/17/17. Current visit: Yes Status: Chronic Blood sugars are reviewed. Fasting sugars are 160-170. They go up further after eating. Metformin was recently started. We will continue to monitor and adjust as needed. (3) Morbid obesity Problem details: BMI >40%. Current visit: Yes Status: Chronic (4) Arteriosclerotic heart disease (ASHD) Current visit: Yes Status: Chronic (5) (HFpEF) heart failure with preserved ejection fraction Current visit: Yes Status: Chronic This appears to be adequately compensated at present with current diuretic regimen. (6) Foot drop, right Current visit: Yes Status: Chronic We are awaiting the AFO brace at this time. DVT Prophylaxis: SCD's, Lovenox Resuscitation Status: Full Code - Course Hospital Course: Rodriguez Rivero MD: 12/15/17 14:01 Patient is cooperative and progressing with therapy. Blood sugars are variable and too high. Metformin started. Remains on diuretics. Tolerating therapy reasonably well although with easy fatigability. 12/16/17 11:14 Blood sugars a bit up. Monitor at present. Tolerates therapy although continues to have easy fatigability and dyspnea. - Interventions to Obtain Goals PT Treatment Plan: Balance/Proprioception, Functional Activities, Gait Training , Patient/Family Education, Therapeutic Exercise OT Treatment Plan: ADL (Basic Care), Balance Training, Pt./Family Education, Ther. Exercise for ADL Goals Progress/Modifications: Patient is medically quite complex with his diabetes, heart failure with preserved ejection fraction and obesity. He continues to have dyspnea with activity which I think is likely a manifestation of deconditioning, morbid obesity, plus or minus heart failure with preserved ejection fraction. I spent quite a bit of time with him yesterday and today discussing his diabetic situation. He is very concerned about his blood sugars at this time. I told him that we have added on metformin and we would adjust that as needed. In addition I encouraged him to eat moderately. He has been able to achieve some weight loss which may well be fluid due to his diuretic usage. He is cooperative with therapy but has easy fatigability. I think it is appropriate to continue therapy at this time.
--- NOTE | 2017-12-16 12:39 | Progress Note ---
- Date 12/16/17 Subjective: Nolan was in good spirits - working with PT in the gym. He is weak overall but denies dizziness or lightheadedness. He is eager to improve. He states that since he retired a few years ago he gained a lot of weight and his activity level drastically declined. He now knows what he's supposed to eat for diabetic control, and he understands the relationship between physical activity and diabetes. Objective Vital signs: Temperature 98.1 F 12/16/17 08:00 Pulse Rate 93 12/16/17 08:00 Respiratory Rate 20 12/16/17 08:00 Blood Pressure 115/72 12/16/17 08:00 Pulse Oximetry 93 12/16/17 08:00 Height/Weight/BMI: Height 1.75 m Weight 126.8 kg Body Mass Index 41.3 - Constitutional Present: no acute distress, well nourished, well developed - Routine HEENT Exam Head: Present: normocephalic Eye: Present: PERRL. Absent: conjunctival icterus, scleral injection - Routine Respiratory Exam Present: CTA bilaterally - Routine Cardiovascular Exam Present: RRR, S1, S2 Comments: sternal scar from bypass sx - Routine Abdominal Exam Present: soft, normoactive bowel sounds, non tender - Routine Extremities Exam Present: edema (BLE, R>L (right leg was his bypass leg)) - Routine Musculoskeletal Exam Musculoskeletal: Present: moving extremities well - Routine Skin Exam Present: intact, dry, warm Comments: chronic venous discoloration to BLE - Routine Neurological Exam Present: alert, oriented X3, normal speech - Routine Psychiatric Exam Present: normal affect, normal thought process, cooperative Results - Labs CBC & Chem 7: 12/14/17 04:11 12/16/17 04:24 Assessment and Plan (1) Debility Current visit: Yes Status: Chronic (2) DM type 2 (diabetes mellitus, type 2) Problem details: A1c 9.8% - 11/17/17. Current visit: Yes Status: Chronic (3) Morbid obesity Problem details: BMI >40%. Current visit: Yes Status: Chronic (4) Arteriosclerotic heart disease (ASHD) Current visit: Yes Status: Chronic Assessment and Plan: Assessment: Gait instability. Generalized weakness. Congestive heart failure, diastolic (Echo 04/2017 = EF 60%). Chronic kidney disease, stage III. Peripheral edema. Hypertension. Hyperlipidemia. CAD. Diabetes Mellitus, Type II - uncontrolled (A1c 9.8% on 11/17/17). Urinary incontinence. Constipation. Depression. Chronic right foot drop secondary to prior lumbar surgery. Morbid obesity, BMI >40. Gout. Plan - 12/16/17: Pt reports that he was started on metformin in May, 2017. Will stop glipizide to reduce hypoglycemic reactions (especially in this setting of increased activity and controlled diet), and increase metformin to 850 mg BIDWM. Pt agreed with these changes. K down to 3.6 and since he's on 2 different diuretics (Lasix 40mg daily as well as Metolazone 5mg on MWF) will start KDur 20 mEq daily. Follow BMP. BP is under good control. Continue therapies per attending. DVT Prophylaxis: Lovenox GI Prophylaxis: Protonix - Physician Narrative Narrative: Date: 12/16/17 Time: 1236 Hospital Course Summary Disclaimer: The visit summary below is not to be considered part of the above Progress Note. Hospital Course: Plan - 12/13/17: Agree with admission to IRU for continued strengthening and improvement in functional abilities. Encourage participation in therapies and provide safe and supportive environment. Will obtain labs for admission including CBC, CMP, UA, TSH, B12 and Prealbumin to assess for possible causes of debility. Given heart failure and dyspnea with exertion, will obtain CXR now. Monitor BGMs closely. Sliding scale insulin available. Continue home Glipidize Xl 5mg daily. May consider transitioning to metformin based on renal function and BGMs. Will try and obtain additional records from Dr. Hill with regard to recommended home medications. Given patient's diabetes, will discontinue HCTZ and continue home Lasix 40mg daily as well as Metolazone 5mg on MWF. Monitor daily weight. Blood pressure elevated on admission. Will initiate lisinopril 5mg daily for additional control. Incontinence most likely multifactorial given morbid obesity and suspected BPH. Will initiate Flomax daily and monitor closely for improvement. Continue home Paxil for depression/anxiety. Bowel motivation for constipation. Protonix for GI protection. SCDs and Lovenox for DVT prophylaxis. Upon discharge, patient's care will be returned to his PCP. 12/16 Pt reports that he was started on metformin in May, 2017. Will stop glipizide to reduce hypoglycemic reactions (especially in this setting of increased activity and controlled diet), and increase metformin to 850 mg BIDWM. Pt agreed with these changes. K down to 3.6 and since he's on 2 different diuretics (Lasix 40mg daily as well as Metolazone 5mg on MWF) will start KDur 20 mEq daily. Follow BMP. BP is under good control.
[2017-12-16] MEDS: METFORMIN 850 MG TABLET PO SCH (17:38)
[2017-12-16] MEDS: TAMSULOSIN 0.4 MG CAPSULE PO SCH (20:38)
[2017-12-16] MEDS: ATORVASTATIN 20 MG TABLET PO SCH (20:38)
[2017-12-17] MEDS: PANTOPRAZOLE 20 MG TABLET PO SCH (06:17)
[2017-12-17] MEDS: FUROSEMIDE 40 MG TABLET PO SCH (08:43)
[2017-12-17] MEDS: POLYETHYL GLYCOL 3350 17gm PACKET PO SCH (08:43)
[2017-12-17] MEDS: METFORMIN 850 MG TABLET PO SCH ×2 (08:43→17:31)
[2017-12-17] MEDS: ASPIRIN 81 MG CHEWABLE TABLET PO SCH (08:43)
[2017-12-17] MEDS: ALLOPURINOL 100 MG TABLET PO SCH (08:44)
[2017-12-17] MEDS: PAROXETINE 40 MG TABLET PO SCH (08:44)
[2017-12-17] MEDS: LISINOPRIL 5 MG TABLET PO SCH (08:44)
[2017-12-17] MEDS: TRAMADOL 50 MG TABLET PO SCH (08:45)
[2017-12-17] MEDS: ENOXAPARIN 40 MG/0.4 ML INJECTION SQ SCH (08:45)
[2017-12-17] MEDS: ATORVASTATIN 20 MG TABLET PO SCH (21:11)
[2017-12-17] MEDS: TAMSULOSIN 0.4 MG CAPSULE PO SCH (21:12)
[2017-12-17] MEDS: ACETAMINOPHEN 325 MG TABLET PO PRN (21:12)
[2017-12-18] MEDS: PANTOPRAZOLE 20 MG TABLET PO SCH (05:58)
[2017-12-18] MEDS: FUROSEMIDE 40 MG TABLET PO SCH (08:39)
[2017-12-18] MEDS: ASPIRIN 81 MG CHEWABLE TABLET PO SCH (08:40)
[2017-12-18] MEDS: PAROXETINE 40 MG TABLET PO SCH (08:40)
[2017-12-18] MEDS: METFORMIN 850 MG TABLET PO SCH ×2 (08:40→17:35)
[2017-12-18] MEDS: LISINOPRIL 5 MG TABLET PO SCH (08:40)
[2017-12-18] MEDS: ALLOPURINOL 100 MG TABLET PO SCH (08:40)
[2017-12-18] MEDS: POLYETHYL GLYCOL 3350 17gm PACKET PO SCH (08:43)
[2017-12-18] MEDS: TRAMADOL 50 MG TABLET PO SCH (08:45)
[2017-12-18] MEDS: ENOXAPARIN 40 MG/0.4 ML INJECTION SQ SCH (10:34)
[2017-12-18] MEDS: ACETAMINOPHEN 325 MG TABLET PO PRN (21:05)
[2017-12-18] MEDS: TAMSULOSIN 0.4 MG CAPSULE PO SCH (21:07)
[2017-12-18] MEDS: ATORVASTATIN 20 MG TABLET PO SCH (21:07)
[2017-12-19] MEDS: ACETAMINOPHEN 325 MG TABLET PO PRN (06:30)
[2017-12-19] MEDS: PANTOPRAZOLE 20 MG TABLET PO SCH (06:30)
[2017-12-19] MEDS: PAROXETINE 40 MG TABLET PO SCH (08:53)
[2017-12-19] MEDS: ALLOPURINOL 100 MG TABLET PO SCH (08:53)
[2017-12-19] MEDS: ASPIRIN 81 MG CHEWABLE TABLET PO SCH (08:54)
[2017-12-19] MEDS: LISINOPRIL 5 MG TABLET PO SCH (08:54)
[2017-12-19] MEDS: FUROSEMIDE 40 MG TABLET PO SCH (08:54)
[2017-12-19] MEDS: ENOXAPARIN 40 MG/0.4 ML INJECTION SQ SCH (08:54)
[2017-12-19] MEDS: TRAMADOL 50 MG TABLET PO SCH (08:54)
[2017-12-19] MEDS: METFORMIN 850 MG TABLET PO SCH ×2 (08:54→17:24)
[2017-12-19] MEDS: POLYETHYL GLYCOL 3350 17gm PACKET PO SCH (08:55)
[2017-12-19] MEDS: INSULIN ASPART 100unit/ml INJECTION SQ PRN ×2 (11:15→14:27)
--- NOTE | 2017-12-19 11:38 | IRU Progress Note ---
- Subjective/Serverity of Illness Date: 12/19/17 Nolan was interviewed and examined today on inpatient rehabilitation. He is very cooperative with therapy. He reports his back pain is improved and his transfers are improving. He continues to have some dyspnea with activity and told me today that his pull through hooker tells him that he will always have that. He is noted to have heart failure with preserved ejection fraction. He is eating adequately. His weight is unchanged after the initial weight loss slightly. Metformin has been increased to 850 mg twice daily and tolerating it well without diarrhea. Brief therapy update: He is able to ambulate 300 feet at a modified independent level. He is able to ambulate 120 feet on uneven ground outdoors. We have sent a request and prescription for an AFO brace for his right lower extremity last week. We will ask therapy to contact [employer] to see where they stand on that. Medical update on issues we are actively managing and monitoring with the hospitalist service as follows: 1. Generalized debilitation: His exercise tolerance and ability to perform functional activities is markedly improved. He is cooperative with therapy and making progress. His back pain is chronic but stable and certainly not worsened despite activity. 2. Heart failure with preserved ejection fraction: Echocardiogram from September 2017 indicates a normal ejection fraction. He does have recurrent peripheral edema and is on a variety of diuretics. His lungs remain clear and he seems to be reasonably well compensated at present. 3. Diabetes mellitus, not controlled, on oral agents: Upon admission he was apparently on glyburide or glipizide only. He has now been started on metformin and is tolerating it well. His blood sugars remain variable bladder certainly improved. We have also discussed with him the importance of limiting total caloric intake in an effort to pursue weight control. 4. Depression: Seems to be in reasonably good spirits and has a positive outlook at present. 5. Coronary artery disease status post bypass, without current angina pectoris Exam Vital Signs: Temperature 97.7 F 12/19/17 08:00 Pulse Rate 96 12/19/17 08:00 Respiratory Rate 16 12/19/17 08:00 Blood Pressure 127/69 12/19/17 08:00 Pulse Oximetry 93 12/19/17 08:00 Height/Weight/BMI: Height 1.75 m Weight 127.9 kg Body Mass Index 41.3 - Constitutional Present: no acute distress, well nourished, well developed, morbidly obese, cooperative - Routine HEENT Exam Head: Present: normocephalic Eye: Present: EOMI ENT: Present: mucous membranes moist, oropharynx clear - Routine Neck Exam Present: supple - Routine Respiratory Exam Present: CTA bilaterally. Absent: wheezes - Routine Cardiovascular Exam Present: RRR, S1, S2. Absent: murmur - Routine Abdominal Exam Present: soft, normoactive bowel sounds, non distended. Absent: tenderness - Routine Extremities Exam Present: edema (trace bilat). Absent: cyanosis, clubbing - Routine Back/Spine/Pelvis Exam Back/Spine: Absent: full ROM - Routine Skin Exam Present: dry, warm - Routine Neurological Exam Present: alert, oriented X3, CN II-XII intact - Routine Psychiatric Exam Present: normal affect, cooperative, anxious Results IRU - Labs Labs: I reviewed chart dated including progress notes by other providers, laboratory results etc. IRU A/P (1) Debility Current visit: Yes Status: Chronic He is improving with therapy. Continue current approach. His back pain is reasonably well controlled at present. Whether he has ongoing or underlying spinal stenosis is not clear at this time. However he is improving with therapy and I think it is appropriate to continue. 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 Current visit: Yes Status: Chronic Metformin has been increased to 850 mg twice daily and he is tolerating this well. Sugars are somewhat improved. (3) Morbid obesity Problem details: BMI >40%. Current visit: Yes Status: Chronic (4) Arteriosclerotic heart disease (ASHD) Current visit: Yes Status: Chronic (5) (HFpEF) heart failure with preserved ejection fraction Current visit: Yes Status: Chronic His edema is improved. His weight is stable. His lungs are clear. (6) Foot drop, right Current visit: Yes Status: Chronic I have asked therapy to contact [employer] to see where we stand on the AFO device. DVT Prophylaxis: Lovenox Resuscitation Status: Full Code - Course Hospital Course: Rodriguez Rivero MD: 12/15/17 14:01 Patient is cooperative and progressing with therapy. Blood sugars are variable and too high. Metformin started. Remains on diuretics. Tolerating therapy reasonably well although with easy fatigability. 12/16/17 11:14 Blood sugars a bit up. Monitor at present. Tolerates therapy although continues to have easy fatigability and dyspnea. 12/19/17 11:40 His blood sugars are improved. His weight is stable. He is improving with therapy and tolerates therapy well. - Interventions to Obtain Goals PT Treatment Plan: Balance/Proprioception, Functional Activities, Gait Training , Patient/Family Education, Therapeutic Exercise OT Treatment Plan: ADL (Basic Care), Balance Training, Pt./Family Education, Ther. Exercise for ADL Goals Progress/Modifications: I have reassessed his cardiopulmonary status. His lungs remain clear. He is edema is improved. He does have heart failure with preserved ejection fraction. He is cooperative with therapy. His appetite is reasonable. Blood sugars continue to be an issue but his metformin has been increased. He is now able to ambulate 300 feet with modified independent level. His functional status is improved and is back pain is adequately controlled at present. It is safe to continue therapy at this time.
--- NOTE | 2017-12-19 13:41 | IRU Team Meeting ---
IRU Team Meeting - Nursing Bladder Assistive Devices Utilized:: Medication Bladder Management Level of Assist: Stand By Assist/Supervision Bladder Frequency of Accidents: No accidents Bowel Assistive Devices Utilized:: Medication Bowel Management Level of Assist: Modified Independent Bowel Frequency of Accidents: No accidents Vital Signs: Vital Signs - 24 hr 12/18/17 15:58 12/18/17 19:20 12/19/17 08:00 Temperature 98.0 F 97.8 F 97.7 F Pulse Rate 100 93 96 Respiratory Rate 22 18 16 Blood Pressure 132/73 130/65 127/69 Pulse Oximetry 94 93 93 Current Medications: Acetaminophen (Tylenol) 650 mg PO Q4H PRN PRN Reason: Pain Last Admin: 12/19/17 06:30 Dose: 650 mg Allopurinol (Zyloprim) 100 mg PO DAILY [facility] Last Admin: 12/19/17 08:53 Dose: 100 mg Aspirin (Asa) 81 mg PO DAILY [facility] Last Admin: 12/19/17 08:54 Dose: 81 mg Atorvastatin Calcium (Lipitor) 20 mg PO HS [facility] Last Admin: 12/18/17 21:07 Dose: 20 mg Enoxaparin Sodium (Lovenox) 40 mg SQ DAILY [facility] Last Admin: 12/19/17 08:54 Dose: 40 mg Furosemide (Lasix) 40 mg PO DAILY [facility] Last Admin: 12/19/17 08:54 Dose: 40 mg Insulin Aspart (Novolog) 2 - 8 unit SQ SS PRN; Protocol PRN Reason: Hyperglycemia Last Admin: 12/19/17 11:15 Dose: 3 unit Lisinopril (Prinivil) 5 mg PO DAILY [facility] Last Admin: 12/19/17 08:54 Dose: 5 mg Magnesium Hydroxide (Mom) 30 ml PO DAILY PRN PRN Reason: Constipation Metformin HCl (Glucophage) 850 mg PO BIDWM [facility] Last Admin: 12/19/17 08:54 Dose: 850 mg Metolazone (Zaroxolyn) 5 mg PO MOWEFR@0900 [facility] Last Admin: 12/19/17 08:54 Dose: 5 mg Nitroglycerin (Nitrostat) 0.4 mg SL Q5MIN3 PRN PRN Reason: Chest pain Pantoprazole Sodium (Protonix) 20 mg PO ACB [facility] Last Admin: 12/19/17 06:30 Dose: 20 mg Paroxetine HCl (Paxil) 60 mg PO DAILY [facility] Last Admin: 12/19/17 08:53 Dose: 60 mg Polyethylene Glycol (Miralax) 17 gm PO DAILY [facility] Last Admin: 12/19/17 08:55 Dose: Not Given Potassium Chloride (K-Dur 20 Meq Tablet) 20 meq PO WB [facility] Last Admin: 12/19/17 08:54 Dose: 20 meq Senna/Docusate Sodium (Senna Plus Tablet) 1 tab PO DAILY PRN PRN Reason: Constipation /Stool softening Tamsulosin HCl (Flomax) 0.4 mg PO HS [facility] Last Admin: 12/18/17 21:07 Dose: 0.4 mg Tramadol HCl (Ultram) 50 mg PO QAM [facility] Last Admin: 12/19/17 08:54 Dose: 50 mg Current Medical Issues: Diabetes mellitus, back pain, HFpEF Comments: I certify that I personally led the interdisciplinary team meeting and agree with comments, barriers and goals indicated. Team meeting was held in the patient's room with the patient and the following family members present: patient's and patient's daughter Mr. Torres is medically stable. Blood sugars are monitored. They are slowly improving. Glipizide has been discontinued and he is on metformin only at the present time along with dietary management. He does have history of heart failure with preserved ejection fraction. His edema is controlled on current regimen. He does have easy fatigability and dyspnea with activity which is chronic. His lungs remain clear. Potassium was restarted last week. - Dietary Patient is on a 2000-calorie consistent carbohydrate diet. Most recent A1c is 8.8. He also has cardiac restrictions. He has been counseled by the dietitian in this regard and is making good meal choices from the menu. - Physical Therapy Bed, Chair, Wheelchair Transfer Assist: Independent Ambulation Ability: Modified Independent Ambulation Distance: 314 Stair Climbing Ability: Modified Independent Number of Steps Climbed: 16 Car Transfer Ability: Modified Independent Comments: He continues to be limited by fatigue. He does demonstrate some decreased balance at times. He does require frequent rest breaks. Despite that, he is improving and is modified independent for ambulating over 300 feet. He seems to be stable for dismissal in the next 24 hours. - Occupational Therapy Eating Ability: Independent Grooming Ability: Independent Bathing Ability: Modified Independent Upper Body Dressing Ability: Independent Lower Body Dressing Ability: Modified Independent Tub Transfer Assist: Modified Independent Toileting Assist: Independent Toilet Transfer Assist: Modified Independent Comments: For occupational therapy his ADLs are performed at modified independence independent level. He has done well with meeting goals and it is anticipated he will undergo a successful safe transition to his home environment. - Goals Physical Therapy Goals: 12/19/17 goals: 1. 3 rest breaks within 60 min treatment session. 2. D/C planning. Occupational Therapy Goals: OT goals 12/19/17: 1.) Pt. to demonstrate home exercise program independently. 2.) Discharge planning. - Barriers to Discharge Barriers to Attaining Goals: Balance, Endurance - Care Plan Anticipated Length of Stay (days): 1 Anticipated DC Destination: Home, Self Care I have led this team conference and agree with the plan. Interventions/Goals: We recommend dismissal tomorrow to home with outpatient physical therapy.
--- NOTE | 2017-12-19 18:25 | Progress Note ---
Progress Note: Nolan was seen after dinner on 12/19/17. He is doing well and has no complaints. He was pleasant, cooperative, in no distress, breathing comfortably. He is excited to be discharged tomorrow. I inquired about his medications, specifically, the fact that he's on 3 different diuretics. He honestly doesn't know his meds very well, but he does recall that Dr. Hill gave him a "super" water pill to take only if needed. He states that his organizes all of his medications. Nursing staff was asked to review discharge meds in detail with his tomorrow, and we will make further adjustments as needed. At this time , will stop metolazone which is currently being given Mon, Wed, & Tue.
[2017-12-19] MEDS: ATORVASTATIN 20 MG TABLET PO SCH (20:28)
[2017-12-19] MEDS: TAMSULOSIN 0.4 MG CAPSULE PO SCH (20:28)
[2017-12-20] MEDS: PANTOPRAZOLE 20 MG TABLET PO SCH (05:50)
[2017-12-20] MEDS: INSULIN ASPART 100unit/ml INJECTION SQ PRN ×2 (05:51→10:17)
[2017-12-20 08:19] VITALS: BP 131/81; PULSE 94; RESP 16; TEMP 98.1; O2SAT 93
[2017-12-20] MEDS: ASPIRIN 81 MG CHEWABLE TABLET PO SCH (08:26)
[2017-12-20] MEDS: ALLOPURINOL 100 MG TABLET PO SCH (08:26)
[2017-12-20] MEDS: METFORMIN 850 MG TABLET PO SCH (08:26)
[2017-12-20] MEDS: ENOXAPARIN 40 MG/0.4 ML INJECTION SQ SCH (08:27)
[2017-12-20] MEDS: FUROSEMIDE 40 MG TABLET PO SCH (08:27)
[2017-12-20] MEDS: LISINOPRIL 5 MG TABLET PO SCH (08:27)
[2017-12-20] MEDS: POLYETHYL GLYCOL 3350 17gm PACKET PO SCH (08:28)
[2017-12-20] MEDS: PAROXETINE 40 MG TABLET PO SCH (08:28)
[2017-12-20] MEDS: TRAMADOL 50 MG TABLET PO SCH (08:28)
--- NOTE | 2017-12-20 10:16 | IRU Progress Note ---
- Subjective/Serverity of Illness Date: 12/20/17 Mr. Torres is looking forward to going home. We have arranged for outpatient physical therapy. In addition we discussed his AFO brace. A prescription was faxed late last week to [facility] in [place] in this regard. Further information indicates however that the store was closed due to a transformer problem. We do not have confirmation that they did receive the prescription however. I instructed the patient to contact them directly as nonpatient to follow-up on this. Patient has some dyspnea with activity but is overall quite stable in this regard. His heart failure appears to be compensated at present. Hospitalist has discussed diuretic use with patient. Plan is to discontinue metolazone I think it's a good idea. He denies any chest pain or jaw pain. He is medically stable for dismissal home. Patient states that his back pain is much improved. We encouraged him to be more active and continue range of motion in order to improve his back. Exam Vital Signs: Temperature 98.1 F 12/20/17 08:00 Pulse Rate 94 12/20/17 08:00 Respiratory Rate 16 12/20/17 08:00 Blood Pressure 131/81 12/20/17 08:00 Pulse Oximetry 93 12/20/17 08:00 Height/Weight/BMI: Height 1.75 m Weight 125.8 kg Body Mass Index 41.3 - Constitutional Present: no acute distress, well nourished, well developed, morbidly obese - Routine HEENT Exam Head: Present: normocephalic Eye: Present: EOMI ENT: Present: mucous membranes moist, oropharynx clear - Routine Respiratory Exam Present: CTA bilaterally. Absent: wheezes - Routine Cardiovascular Exam Present: RRR, S1, S2. Absent: murmur - Routine Abdominal Exam Present: soft, normoactive bowel sounds, non distended. Absent: tenderness - Routine Extremities Exam Present: no edema - Routine Skin Exam Present: dry, warm - Routine Neurological Exam Present: alert, oriented X3, CN II-XII intact - Routine Psychiatric Exam Present: normal affect IRU A/P (1) Debility Current visit: Yes Status: Chronic He has improved nicely with therapy. He is much more ambulatory. He is transferring better. His back pain is improved. Lower extremity strength appears to be improved as well. (2) DM type 2 (diabetes mellitus, type 2) Qualifiers: Diabetes mellitus meterman insulin use: without correction use Diabetes mellitus complication status: without complication Qualified Code(s): E11.9 - Type 2 diabetes mellitus without complications Problem details: A1c 9.8% - 11/17/17. Current visit: Yes Status: Chronic His blood sugars are much improved at the present time. He is on metformin and tolerating well. Has some soft stools but no diarrhea. I urged him to take this with food. (3) Morbid obesity Problem details: BMI >40%. Current visit: Yes Status: Chronic (4) Arteriosclerotic heart disease (ASHD) Current visit: Yes Status: Chronic (5) (HFpEF) heart failure with preserved ejection fraction Current visit: Yes Status: Chronic (6) Foot drop, right Current visit: Yes Status: Chronic DVT Prophylaxis: Lovenox Resuscitation Status: Full Code - Course Hospital Course: Rodriguez Rivero MD: 12/15/17 14:01 Patient is cooperative and progressing with therapy. Blood sugars are variable and too high. Metformin started. Remains on diuretics. Tolerating therapy reasonably well although with easy fatigability. 12/16/17 11:14 Blood sugars a bit up. Monitor at present. Tolerates therapy although continues to have easy fatigability and dyspnea. 12/19/17 11:40 His blood sugars are improved. His weight is stable. He is improving with therapy and tolerates therapy well. 12/20/17 10:15 See above discussion regarding AFO brace. His heart failure is compensated. His sugars are improved. He has done well with therapy. - Interventions to Obtain Goals PT Treatment Plan: Balance/Proprioception, Functional Activities, Gait Training , Patient/Family Education, Therapeutic Exercise OT Treatment Plan: ADL (Basic Care), Balance Training, Pt./Family Education, Ther. Exercise for ADL
--- NOTE | 2017-12-20 11:06 | Discharge Summary ---
Discharge Information Date of admission: 12/13/17 13:19 Anticipated date of discharge: 12/20/17 Attending Physician: Rodriguez Rivero MD Consults: 12/13/17 15:18 Physician Consult [CONS] Routine Consulting Provider: Winnie Barlow Reason For Exam: medical management Ordering Provider has Notified Audio Video Tech: Renate 12/13/17 15:20 Dietary Consult [CONS] Routine Comment: Reason For Exam: DM, obesity, CHF 12/14/17 Make Ready Mechanic Consult [Inpatient Diabetic Consult] [CONS] Routine Diabetic Training: Other Comment: general education needed 12/14/17 04:26 Case Management Consult [CONS] Routine Reason For Exam: Noc Ox Study - Discharge Diagnosis (1) Debility Status: Chronic (2) DM type 2 (diabetes mellitus, type 2) Status: Chronic (3) Morbid obesity Status: Chronic (4) Arteriosclerotic heart disease (ASHD) Status: Chronic (5) (HFpEF) heart failure with preserved ejection fraction Status: Chronic (6) Foot drop, right Status: Chronic 1. Generalized debilitation 2. Diabetes mellitus type 2, not on long-term insulin, not controlled 3. Morbid obesity (BMI 41) 4. Atherosclerotic heart disease 5. Heart failure with preserved ejection fraction 6. Right foot drop 7. Chronic low back pain - Laboratory Labs: 12/14/17 04:11 12/19/17 03:54 History of Present Illness HPI: Mr. Torres is a very pleasant 67-year-old male living at home with his . His family contacted us with request for evaluation. He has had a progressive downhill course with progressive weakness in the lower extremities, inactivity and generalized deconditioning. In addition, the patient has history of heart failure with preserved ejection fraction (ejection fraction 60% or greater in April 2017). He has recurrent peripheral edema is on multiple diuretics. The patient has history of several back procedures and has fallen about 5 or 6 times in the last month. He also has history of diabetes mellitus with inadequate control at home. He is on glipizide only according to the patient. The patient has multiple functional deficits in addition to his multiple medical problems and it was recommended that he be cared for in a multidisciplinary setting with medical supervision. He was admitted to inpatient rehabilitation on 12/13/2017 in this regard. Hospital Course This is a general summary of the patient's hospital course. For more details refer to the complete medical record. He was admitted to acute inpatient rehabilitation on 12/13/2017. His blood sugars were monitored. They were initially quite high in the 240 range. Ultimately they did come down into the 120-150 range. He was switched from glipizide to metformin 850 mg bid and tolerated this well. He was followed by the hospitalist service as well as by Dr. Rivero. He remained medically stable and his blood sugars improved. His heart failure was treated with diuretics. His edema improved. His lungs were clear. We did obtain and reviewed records from Dr. Mendiola and Dr. Hill. The following levels of functional competence are to be considered preliminary information. The reader is encouraged to refer to actual therapy notes and reports for specific details. Patient was followed closely by occupational therapy. He was independent to modified independent level for all ADLs at the conclusion of therapy. He was also followed closely by physical therapy. He continued to have the right foot drop which predated this admission. Prescription was sent to [facility] in [place] for an AFO. That is still pending. He was encouraged to contact them directly as an outpatient to follow-up on this. For transfers, he was modified independent level with physical therapy. He was able to ultimately ambulate 300 feet on even ground and 120 feet on uneven ground at modified independent level with a front-wheeled walker. Patient was felt to be stable for dismissal on 12/20/2017. He was strongly advised to maintain an activity/exercise program while at home. We also recommended outpatient physical therapy. The AFO brace is still pending and he was urged to contact [facility] directly in this regard. For his low back pain, he was given a prescription for tramadol 50 mg #30 tablets without refills. He was encouraged to rely on Tylenol predominantly and to decrease the use of tramadol as time goes on. He will follow-up with Dr. Mendiola regarding his medical issues. Hospital course: Plan - 12/13/17: Agree with admission to IRU for continued strengthening and improvement in functional abilities. Encourage participation in therapies and provide safe and supportive environment. Will obtain labs for admission including CBC, CMP, UA, TSH, B12 and Prealbumin to assess for possible causes of debility. Given heart failure and dyspnea with exertion, will obtain CXR now. Monitor BGMs closely. Sliding scale insulin available. Continue home Glipidize Xl 5mg daily. May consider transitioning to metformin based on renal function and BGMs. Will try and obtain additional records from Dr. Hill with regard to recommended home medications. Given patient's diabetes, will discontinue HCTZ and continue home Lasix 40mg daily as well as Metolazone 5mg on MWF. Monitor daily weight. Blood pressure elevated on admission. Will initiate lisinopril 5mg daily for additional control. Incontinence most likely multifactorial given morbid obesity and suspected BPH. Will initiate Flomax daily and monitor closely for improvement. Continue home Paxil for depression/anxiety. Bowel motivation for constipation. Protonix for GI protection. SCDs and Lovenox for DVT prophylaxis. Upon discharge, patient's care will be returned to his PCP. 12/16 Pt reports that he was started on metformin in May, 2017. Will stop glipizide to reduce hypoglycemic reactions (especially in this setting of increased activity and controlled diet), and increase metformin to 850 mg BIDWM. Pt agreed with these changes. K down to 3.6 and since he's on 2 different diuretics (Lasix 40mg daily as well as Metolazone 5mg on MWF) will start KDur 20 mEq daily. Follow BMP. BP is under good control. Time spent with patient: greater than 35 minutes Resuscitation Status: Full Code Discharge Plan - Med Rec/Dispo Referrals/Follow Up: Rodriguez Mendiola MD [Physician] - (Dr. Prachi Mendiola on 12/28/2017 at 9:00 am for Hosp. follow-up. [facility] [address] [address]) Marissa Instructions: Chronic Back Pain (GEN), Type 2 Diabetes in Adults (GEN) Additional Instructions: Physical therapy appointment in [place] 12/26/17 at 11:30. Phone number is Prescriptions: New Atorvastatin [Lipitor] 20 mg PO HS #30 tab Metformin [Glucophage] 850 mg PO BIDWM #60 tab Aspirin Chewable [ASA] 81 mg PO DAILY tab.chew Potassium Chloride 10 meq PO WB #10 tab.er.prt Continue hydroCHLOROthiazide [Hydrochlorothiazide] 25 mg PO DAILY Furosemide [Lasix 40 mg Tab] 1 tab PO DAILY PARoxetine HCl [Paroxetine HCl] 40 mg PO DAILY Allopurinol [Zyloprim] 100 mg PO DAILY Tramadol HCl [Ultram] 50 mg PO Q6HR PRN #30 tab PRN Reason: Pain Changed Metolazone [Zaroxolyn] 5 mg PO MOWEFR PRN #20 tab PRN Reason: Edema Discontinued glipiZIDE [Glipizide ER] 5 mg PO DAILY Discharge Instructions/Outpatient Orders: BMP - Basic Metabolic - [facility] Time Frame: 5 Days, Location: None Selected - Disposition 01 Discharged Home, Self-Care - Dismissal Complete Discharge Instructions are:: Complete
--- NOTE | 2017-12-20 11:09 | Letter to Referring Physician ---
Dear Dr. Mendiola, This is a brief note to bring you up-to-date on the status of Nolan Torres and his stay on the acute inpatient rehabilitation unit at [facility]. His family contacted us to report that he had had several falling spells at home , along with severe progressive leg weakness and debilitation over the last several months. He was evaluated and for this reason was admitted to inpatient rehabilitation unit at [facility] on December 13, 2017. While on inpatient rehabilitation, this patient was seen by occupational therapy and physical therapy and improved overall in their functional ability. We also monitored and managed the patient's diabetes mellitus and HFpEF while on Acute Rehab. He was seen by diabetic education. We did discontinue his glipizide and started metformin 850 mg twice daily. He was advised to monitor his blood sugars 4 times daily at home and write them down and bring them to your office. Please see a copy of the history and physical examination as well as discharge summary enclosed with this letter for further details. We do recommend that the patient obtain a BMP in about 5 days after dismissal. We did advise the patient of this but have not specifically arranged for that lab. If your office could contact him to confirm that happens, that would be helpful. He will be seeing outpatient physical therapy after dismissal. We did give him a prescription for tramadol 50 mg #30 tablets with no refills for his chronic back pain. His back pain is much improved at the time of dismissal. In addition , we have requested an AFO brace for his right foot drop via [facility] in [place]. That is still pending and he was advised to contact them directly to arrange for that. A prescription was faxed to them on 12/15/2017. Thank you for allowing us to be involved in this nice patient's care. Please contact me directly should you have any questions regarding their stay on the inpatient rehabilitation unit. Sincerely, Rodriguez Rivero M.D.
== END 2017-12-20 13:15 | disposition home or self-care (01) | DRG 945 ==
PROVIDERS: ADMIT Internal Medicine; ATTEND Internal Medicine